=== PATIENT | male | born 1985 | race African-American/Black ===

== ENCOUNTER 2017-01-02 17:55 | Emergency (ER) | payer SELFPAY ==
[~2017-01-02] VITALS: Ht 185.4 cm; Wt 84.0 kg
[2017-01-02 19:16] VITALS: BP 146/99
[2017-01-02] MEDS ORDERED: KETOROLAC TROMETHAMINE 30 MG/ML VIAL IM ONE (20:00)
== END 2017-01-02 20:13 | disposition home or self-care (01) ==
LOC: EMS 17:59
DX: S46.911A Strain of unspecified muscle, fascia and tendon at shoulder and upper arm level, right arm, initial encounter (principal); Z88.8 Allergy status to other drugs, medicaments and biological substances; X58.XXXA Exposure to other specified factors, initial encounter; Y93.89 Activity, other specified; Y92.9 Unspecified place or not applicable; Y99.9 Unspecified external cause status
CPT/HCPCS: 73030; 96372; 99284; J1885